=== PATIENT | female | born 2000 | race Caucasian/White ===

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

== ENCOUNTER 2021-04-15 12:04 | Inpatient (IN) | payer MEDICAID ==
[~2021-04-15] VITALS: Ht 165.1 cm; Wt 52.3 kg
[~2021-04-15 12:04] MED LIST changes: +ETON68IM3 SD
[2021-04-15] MEDS ORDERED: DiphenhydrAMINE HCL 50 MG/ML VIAL IM ONE (13:45)
[2021-04-15] MEDS ORDERED: LORazepam 2 MG/ML VIAL IM ONE (13:45)
[2021-04-15 14:12] LABS: BASOPHILS % (AUTO) 0.7 % (0.0-2.0); EOSINOPHILS % (AUTO) 0 % (1.0-6.0); HEMATOCRIT 46.7 % (36-46); HEMOGLOBIN 15.5 g/dL (12.0-16.0); LYMPHOCYTES # (AUTO) 1.4 K/uL (1.0-4.8); LYMPHOCYTES % (AUTO) 10.4 % (22.0-44.0); MEAN CORPUSCULAR HEMOGLOBIN 29.5 pg (26.0-34.0); MEAN CORPUSCULAR HGB CONC 33.3 G/dL (31.0-37.0); MEAN CORPUSCULAR VOLUME 89 fL (80-100); MONOCYTES # (AUTO) 1.1 K/uL (0.1-1.0); MONOCYTES % (AUTO) 8.4 % (2.0-9.0); NEUTROPHILS % (AUTO) 80.5 % (40.0-70.0); PLATELET COUNT (AUTO) 330 K/uL (150-450); RED BLOOD CELL COUNT(AUTO) 5.27 MIL/uL (4.00-5.20); RED CELL DISTRIBUTION WIDTH 13.4 % (11.5-14.5)
[2021-04-15 14:21] LABS: ANION GAP 18 mmol/L (8-16); CALCIUM, TOTAL 9.5 mg/dL (8.8-10.5); CARBON DIOXIDE 20 mmol/L (22-29); CHLORIDE 103 mmol/L (98-107); CREATININE 0.76 mg/dL (0.60-1.30); GLOMERULAR FILTR. RATE CALC > 60 mL/min (>60); GLUCOSE,RANDOM 122 mg/dL (70-110); POTASSIUM 3.5 mmol/L (3.5-5.1); SODIUM SERUM 141 mmol/L (136-145); UREA NITROGEN, BLOOD 9 mg/dL (7-18)
[2021-04-15 14:48] LABS: ALANINE AMINOTRANSFERASE 21 U/L (12-78); ALKALINE PHOSPHATASE 130 U/L (46-116); ASPARTATE AMINOTRANSFERASE 17 U/L (15-37); BILIRUBIN,TOTAL 1.1 mg/dL (0.1-1.0); CREATINE KINASE, TOTAL ONLY 108 U/L (26-192); FREE T4 (FREE THYROXINE) 1.28 ng/dL (0.76-1.46); HCG,QUANTITATIVE < 1 mIU/mL (0-6); THYROID STIMULATING HORMONE 2.62 uIU/mL (0.36-3.74); TOTAL PROTEIN, SERUM 8.8 g/dL (6.4-8.2)
[2021-04-15 15:17] LABS: COVID AG,FIA SOURCE NASOPHARYNGEAL
[2021-04-15] MEDS: ACETAMINOPHEN 325 MG TABLET PO ONE ×2 (15:17→15:51)
[2021-04-15] MEDS ORDERED: LIDOCAINE/PF 1% 2 ML VIAL IM ONE (17:45)
[2021-04-15] MEDS ORDERED: AZITHROMYCIN 500 MG TABLET PO ONE (17:45)
[2021-04-15] MEDS ORDERED: CefTRIAXone SODIUM 1 GM/VIAL IM ONE (17:45)
[2021-04-15 18:19] LABS: APPEARANCE,URINE CLOUDY (CLEAR); GLUCOSE, URINE (UA) NEGATIVE (NEGATIVE); KETONES,URINE 40 mg/dL (NEGATIVE); LEUKOCYTE ESTERASE ,URINE NEGATIVE (NEGATIVE); NITRATE,URINE NEGATIVE (NEGATIVE); OCCULT BLOOD,URINE MODERATE (NEGATIVE); PROTEIN,URINE TRACE (NEGATIVE); UROBILINOGEN,URINE 0.2 mg/dL (<=1.0)
[2021-04-15 18:25] LABS: BILIRUBIN,URINE PRELIM. POSITIVE (NEGATIVE)
[2021-04-15 18:31] LABS: AMPHET/METH SCREEN,URINE NEGATIVE (NEGATIVE); BARBITURATE SCREEN, URINE NEGATIVE (NEGATIVE); BENZODIAZEPINES SCREEN,URINE NEGATIVE (NEGATIVE); CANNABINOID SCREEN,URINE POSITIVE (NEGATIVE); COCAINE SCREEN,URINE NEGATIVE (NEGATIVE); METHADONE SCREEN, URINE NEGATIVE (NEGATIVE); OPIATE SCREEN,URINE NEGATIVE (NEGATIVE)
[2021-04-15 18:32] LABS: PHENCYCLIDINE SCREEN,URINE NEGATIVE (NEGATIVE)
[2021-04-15 18:42] LABS: BACTERIA,URINE Few /HPF (None Seen); MUCUS,URINE Few LPF (None Seen); SQUAMOUS EPITHELIAL CELL,UR Few /LPF (None Seen); WBC,URINE 0-2 /HPF (0-5)
[2021-04-15] MEDS ORDERED: LORazepam 2 MG TABLET PO PRN (19:00)
[2021-04-15] MEDS ORDERED: GuaiFENesin/D-METHORPHAN [SUGAR-FREE] 200-20MG/10 ML SYRUP UDCUP PO PRN (19:00)
[2021-04-15] MEDS ORDERED: PROMETHAZINE HCL 25 MG TABLET PO PRN (19:00)
[2021-04-15] MEDS ORDERED: HydrOXYzine PAMOATE 50 MG CAPSULE PO PRN (19:00)
[2021-04-15] MEDS ORDERED: ZOLPIDEM TARTRATE 10 MG TABLET PO PRN (19:00)
[2021-04-15] MEDS ORDERED: OLANZapine 5 MG RAPDIS TABLET PO PRN (19:00)
[2021-04-15] MEDS ORDERED: TUBERCULIN, PURIFIED PROTEIN DERIVATIVE 5 TU/0.1 ML SYRINGE ID ONE (19:00)
[2021-04-15 20:57] VITALS: BP 146/99
[2021-04-15 21:01] VITALS: BP 146/99
[2021-04-15] MEDS: THIAMINE 100 MG TABLET PO SCH (21:04)
[2021-04-15] MEDS: OLANZapine 5 MG RAPDIS TABLET PO SCH (21:05)
[2021-04-15] MEDS: MELATONIN 5 MG TABLET PO SCH (21:05)
[2021-04-16 07:25] LABS: CHOL/HDL RATIO 2.5 (3.9-5.7); FREE T4 (FREE THYROXINE) 1.28 ng/dL (0.76-1.46); HEMOGLOBIN A1C 4.8 % (3.8-5.6); THYROID STIMULATING HORMONE 2.37 uIU/mL (0.36-3.74)
[2021-04-16] MEDS: THIAMINE 100 MG TABLET PO SCH ×2 (07:58→17:29)
[2021-04-16] MEDS: FOLIC ACID 1 MG TABLET PO SCH (07:58)
[2021-04-16] MEDS: OMEGA-3/DHA/EPA/FISH OIL 1,000 MG CAPSULE PO SCH (07:58)
[2021-04-16] MEDS: MULTIVITAMINS WITH MINERALS, THERAPEUTIC TABLET PO SCH (07:58)
[2021-04-16 08:00] VITALS: BP 114/66
[2021-04-16 16:19] VITALS: BP 105/63
[2021-04-16] MEDS: MELATONIN 5 MG TABLET PO SCH (20:56)
[2021-04-16] MEDS: OLANZapine 5 MG RAPDIS TABLET PO SCH (20:56)
[2021-04-17] MEDS: MetroNIDAZOLE 500 MG TABLET PO SCH ×2 (08:30→16:03)
[2021-04-17] MEDS: NALTREXONE HCL 50 MG TABLET PO SCH (08:30)
[2021-04-17] MEDS: OMEGA-3/DHA/EPA/FISH OIL 1,000 MG CAPSULE PO SCH (08:31)
[2021-04-17] MEDS: FOLIC ACID 1 MG TABLET PO SCH (08:31)
[2021-04-17] MEDS: THIAMINE 100 MG TABLET PO SCH ×2 (08:31→16:03)
[2021-04-17] MEDS: MULTIVITAMINS WITH MINERALS, THERAPEUTIC TABLET PO SCH (08:32)
[2021-04-17 09:28] VITALS: BP 140/91
[2021-04-17 16:12] VITALS: BP 108/71
[2021-04-17] MEDS: OLANZapine 5 MG RAPDIS TABLET PO SCH (20:20)
[2021-04-17] MEDS: MELATONIN 5 MG TABLET PO SCH (20:20)
[2021-04-17] MEDS ORDERED: NALT50TA PO (20:42)
[2021-04-17] MEDS ORDERED: OLAN5TAB94 PO (20:42)
[2021-04-17] MEDS ORDERED: FLUO20CA36 PO (20:42)
[2021-04-17] MEDS ORDERED: MELA5TAB3 PO (20:42)
[2021-04-17] MEDS ORDERED: OMEG-135 PO (20:43)
[2021-04-18 05:07] LABS: HIV 1-2 SCREEN 4TH GEN W/RFLX Non Reactive (Non Reactive)
[2021-04-18 08:00] VITALS: BP 134/89
[2021-04-18] MEDS: FOLIC ACID 1 MG TABLET PO SCH (08:05)
[2021-04-18] MEDS: MetroNIDAZOLE 500 MG TABLET PO SCH (08:05)
[2021-04-18] MEDS: NALTREXONE HCL 50 MG TABLET PO SCH (08:05)
[2021-04-18] MEDS: MULTIVITAMINS WITH MINERALS, THERAPEUTIC TABLET PO SCH (08:05)
[2021-04-18] MEDS: OMEGA-3/DHA/EPA/FISH OIL 1,000 MG CAPSULE PO SCH (08:05)
[2021-04-18] MEDS: THIAMINE 100 MG TABLET PO SCH (08:06)
[2021-04-18] MEDS ORDERED: METR500 PO ×2 (08:49→10:47)
[2021-04-18] MEDS ORDERED: FLUoxetine HCL 20 MG CAPSULE PO SCH (09:00)
== END 2021-04-18 11:25 | disposition home or self-care (01) | DRG 750 ==
LOC: EMS 12:09 → 3EC 19:42
PROVIDERS: ADMIT Psychiatry & Neurology Psychiatry; ATTEND Psychiatry & Neurology Psychiatry
DX: F20.9 Schizophrenia, unspecified (principal); Z78.1 Physical restraint status; F31.60 Bipolar disorder, current episode mixed, unspecified; F12.10 Cannabis abuse, uncomplicated; F41.9 Anxiety disorder, unspecified; N89.8 Other specified noninflammatory disorders of vagina; Z20.822 Contact with and (suspected) exposure to COVID-19; Z65.3 Problems related to other legal circumstances; Z59.9 Problem related to housing and economic circumstances, unspecified; Z55.9 Problems related to education and literacy, unspecified
CPT/HCPCS: 51701; 80053; 80061; 81001; 82550; 83036; 84439; 84443; 84702; 85025; 86592; 86695; 86696; 87389; 87426; 87491; 87591; 99285; A9575; G0480; J0696; J1200; J2060; J3490